=== PATIENT | male | born 1945 | race Caucasian/White ===

== ENCOUNTER → 2017-07-31 | Outpatient (CLI) | payer MEDICARE | END | disposition home or self-care (01) | LOC: C.RDSM 14:30 | PROVIDERS: ATTEND Physical Medicine & Rehabilitation Sports Medicine | DX: M25.561 Pain in right knee (principal) ==

== ENCOUNTER 2019-01-30 06:10 | Inpatient (IN) ==
--- NOTE | 2019-01-14 09:07 | PAT Medication Instructions ---
Medication Instructions Date of Service January 14, 2019 Home Medications acetaminophen [Tylenol Extra Strength] 1,000 mg PO TID NEEDED aspirin [Aspirin Low Dose] 81 mg PO HS lisinopril 40 mg PO QAM blncmpfj-aba-OC-lycopen-lutein [Men 50 Plus Multivitamin] 1 tab PO DAILY rosuvastatin 5 mg PO HS solifenacin [Vesicare] 10 mg PO QAM DO NOT take the morning of surgery lisinopril 40 mg PO QAM xhnfdash-ggq-LJ-lycopen-lutein [Men 50 Plus Multivitamin] 1 tab PO DAILY solifenacin [Vesicare] 10 mg PO QAM Take morning of surgery With a small sip of water, OTHERWISE NOTHING TO EAT OR DRINK AFTER MIDNIGHT: acetaminophen [Tylenol Extra Strength] 1,000 mg PO TID NEEDED (if needed; stop taking 4 hours prior to surgery) Take evening before surgery acetaminophen [Tylenol Extra Strength] 1,000 mg PO TID NEEDED (if needed) aspirin [Aspirin Low Dose] 81 mg PO HS rosuvastatin 5 mg PO HS Other Notes If you have any questions please call us at [phone] or [phone] or [phone] or [phone]
--- NOTE | 2019-01-14 12:05 | Anesthesiology Consultation ---
Date of Service January 14, 2019 Assessment & Plan (1) Encounter for pre-operative examination: -No previous anesthesia records re: intubation Chart Review Chart Review: Acceptable Risk for Surgery and Patient seen in Pre Admission Test ing Consults Requested medical (Dr. Lozano (01/18)) Patient was seen by PCP on 01/18 and Clearance request sheet was filled out. They indicated that "Yes", patient is medically cleared for surgery. Teaching & Discussion Pre-Anesthesia Teaching/Discussion Notes: Instructed NPO after midnight before surgery, except medications with 15 cc of water. Medication instructions provided according to the PAT guidelines. History Surgery Operation Date: 01/30/19 09:00 Proposed Procedures p Left Total Knee Arthroplasty - Singh Brown MD Height/Weight Height: 6 ft 5 in Weight: 120.4 kg Allergies Allergy/AdvReac Type Severity Reaction Status Date / Time No Known Allergies Allergy Verified 01/08/19 11:20 Medications Home Medications Medication Instructions Recorded Confirmed Last Taken acetaminophen [Tylenol Extra 1,000 mg PO TID PRN 01/08/19 01/08/19 Unknown Strength] aspirin [Aspirin Low Dose] 81 mg PO HS 01/08/19 01/08/19 Unknown lisinopril 40 mg PO QAM 01/08/19 01/08/19 Unknown wabjznwr-pzn-YB-lycopen-lutein 1 tab PO DAILY 01/08/19 01/08/19 Unknown [Men 50 Plus Multivitamin] rosuvastatin 5 mg PO HS 01/08/19 01/08/19 Unknown solifenacin [Vesicare] 10 mg PO QAM 01/08/19 01/08/19 Unknown Past Medical History Medical History Environmental allergies H/O prostate cancer Hyperlipidemia Hypertension Osteoarthritis Pacemaker PLACED 08/16/2018. LAST CHECKED 01/08/19. [facility] (DR. AZAM JONES) IN [place]. Exercise / Class Metabolic Activity II 4-5 Yardwork/Stairs/Walk up hill (Less due to knee pain. Walks dog 2 miles per day. Climbs stairs for activity. Denies CP or SOB. ) Past Surgical History Surgical History H/O cataract extraction H/O elbow surgery BILATERAL H/O hand surgery BILATERAL History of adenoidectomy History of cardiac cath 08/2018 NO STENTS. History of carpal tunnel release BILATERAL History of colonoscopy History of esophagogastroduodenoscopy (EGD) History of permanent cardiac pacemaker placement 08/2018 [facility] History of prostatectomy History of radial keratotomy History of repair of rotator cuff X2 RIGHT History of tonsillectomy Past Anesthesia History No Hx of Anesthesia Complications and No Family Hx of Anesthesia Complications History of PONV No Hx of PONV and No Hx of Motion Sickness Social History Smoking Status: Never smoker Do You Dip or Chew Tobacco: No Hx Alcohol Use: No Hx Substance Use: No substance use type: does not use Review of Systems Patient denies chest pain, shortness of breath, dyspnea on exertion, cough, wheezing, palpitations. +Joint Pain (Knees) +Acid Reflux (diet controlled) Physical Exam Vital Signs BP: 138/83 P: 76 R: 16 T: 98.1 SPO2: 96% on RA ENMT Thyromental Distance: > or= 3.5 Finger Breadths (4) Mallampati Class: II Neck normal visual inspection, trachea midline and + facial hair (Cruz - Advised); neck extension not limited Respiratory normal respiratory effort Auscultation: lungs clear to auscultation bilaterally Cardiovascular Rate/Rhythm: regular rate and regular rhythm Heart Sounds: no murmur Vessels: no carotid bruit Chest (Breasts) Chest: + pacemaker (left) Neurologic moves all extremities Psychiatric Orientation: alert and oriented x 3 Testing Laboratory Results 01/14/19 12:45 01/14/19 12:45 PT 10.6 Seconds (9.0-12.0) 01/14/19 12:45 INR 1.0 (0.9-1.1) 01/14/19 12:45 APTT 26.8 Seconds (21.0-31.0) 01/14/19 12:45 Urine Color Yellow 01/14/19 Unknown Urine Appearance Clear (Clear) 01/14/19 Unknown Urine pH 5.5 (4.5-7.5) 01/14/19 Unknown Ur Specific [place] 1.017 (1.000-1.030) 01/14/19 Unknown Urine Protein Negative (Negative) 01/14/19 Unknown Urine Glucose (UA) Negative (Negative) 01/14/19 Unknown Urine Ketones Negative (Negative) 01/14/19 Unknown Urine Nitrite Negative (Negative) 01/14/19 Unknown Ur Leukocyte Esterase Negative (Negative) 01/14/19 Unknown Blood Type O Positive 01/14/19 12:45 Antibody Screen NEGATIVE 01/14/19 12:45 Electrocardiogram Date: 01/14/19 Atrial sensed ventricular paced rhythm @ 67 bpm Chest X-Ray Date: 01/14/19 Findings: + NAD FINDINGS: The bones soft tissues and hemidiaphragms are normal. The cardiomediastinal silhouette is normal. The lungs are clear. The pulmonary vasculature is normal. IMPRESSION: Negative chest. Bipolar cardiac pacemaker in good position. Echocardiogram Date: 08/17/18 EF: 60% This is a limited echocardiogram for left ventricular function. All long of the left ventricle appear to contract. The EF appears normal at 60%. Cardiac Catheterization Date: 08/19/18 Intervention: + none The patient has minimal atherosclerotic disease. Preserved LV function. No mitral regurgitation, Normal LV diastolic parameters. The patient will continue with primary prevention for atherosclerotic disease. Findings: 1. The left main gives rise to the LAD, circumflex coronary artery, and a small ramus intermedius vessel. No plaque is present within the left main, which is about a 4.0 caliber vessel. The LAD is a large and tortous vessel without plaquing present. 2. The circumflex coronary artery is angiographically nondominant, although has a rich supply of obtuse marginalis. Minimal atheromata is seen in the circ, and in its branch vessels. There is a very large atrial recurrent branch coming off of the circumflex coronary artery. 3. The right coronary artery is as angiographically dominant large vessel with lumial irregularities. No significant plaque present. EF 65% with no RWMA Other Testing 01/08/19 -Note states "Mr. Borden's dual chamber Medtronic pacemaker was interrogated today. The device demonstrates appropriate function. No significant arrhythmias were documented. Mr. Borden will have a follow-up device interrogation in three-four months." This note was from Dr. Jones in [place].
--- NOTE | 2019-01-14 13:12 | XRay Report ---
XR chest Pre-admission PA/Lat CLINICAL HISTORY: pat preoperative COMPARISON STUDY: No previous studies for comparison. FINDINGS: The bones soft tissues and hemidiaphragms are normal. The cardiomediastinal silhouette is n ormal. The lungs are clear. The pulmonary vasculature is normal. IMPRESSION: Negative chest. Bipolar cardiac pacemaker in good position. The above report was generated using voice recognition software. It may contain grammatical, syntax or spelling errors. Electronically signed by: Viraj Murguia M.D. 01/14/2019 1:11 PM
[2019-01-14 14:00] LABS: Basophils # (auto) 0.02 K/uL (0-0.2); Basophils % (auto) 0.4 %; Eosinophils # (auto) 0.12 K/uL (0-0.5); Eosinophils % (auto) 2.4 %; Hematocrit (blood only) 43.8 % (42-52); Hemoglobin 14.9 g/dL (14.0-18.0); Immature Granulocytes # (auto) 0.01 K/uL (0.00-0.02); Immature Granulocytes % (auto) 0.2 %; Lymphocytes # (auto) 1.43 K/uL (1.2-3.4); Lymphocytes % (auto) 28.8 %; Mean Corpuscular Volume 86.1 fL (80-100); Monocytes # (auto) 0.43 K/uL (0.11-0.59); Monocytes % (auto) 8.7 %; Neutrophils # (auto) 2.96 K/uL (1.4-6.5); Neutrophils % (auto) 59.5 %; Platelet Count 261 K/uL (130-400); RDW Standard Deviation 43.7 fL (36.4-46.3); Red Blood Count 5.09 M/uL (4.7-6.1); White Blood Count 4.97 K/uL (4.8-10.8)
[2019-01-14 14:13] LABS: Partial Thromboplastin Time 26.8 Seconds (21.0-31.0); Prothrombin Time 10.6 Seconds (9.0-12.0)
[2019-01-14 14:23] LABS: Appearance Urine Clear (Clear); Bilirubin Urine Negative (Negative); Blood Urine Negative (Negative); Color Urine Yellow; Glucose Urine UA Negative (Negative); Ketones Urine Negative (Negative); Leukocyte Esterase Urine Negative (Negative); Nitrite Urine Negative (Negative); Protein Urine Negative (Negative); Specific Gravity Urine 1.017 (1.000-1.030); Urobilinogen Urine Negative (Negative); pH Urine 5.5 (4.5-7.5)
[2019-01-14 14:28] LABS: BUN Creatinine Ratio 17.2 (10-20); Calcium 9.9 mg/dl (8.5-10.1); Creatinine Clr Calc Pharmacy 131.6 ml/min; Est GFR (African American) 107.6; Est GFR (Non-African American) 92.8; Potassium 4.5 mmol/L (3.5-5.1)
--- NOTE | 2019-01-18 19:21 | History and Physical Report ---
DATE OF ADMISSION: 01/30/2019 PATIENT OF: Singh Brown MD. CHIEF COMPLAINT: Left knee pain. HISTORY OF PRESENT ILLNESS: This 73-year-old white male presents to the office with complaints of longstanding history of bilateral knee pain, left greater than right. He has tried activity modification, oral anti-inflammatories, oral pain medication, viscosupplementation injections, and cortisone injections without lasting relief. The knee pain has been ongoing for years. He feels ready to proceed with total knee arthroplasty. Recent x-rays have been obtained. Pain is affecting his ADLs. It is worse with weightbearing. He elects to proceed with left total knee arthroplasty in hopes of alleviating his pain. FAMILY HISTORY: Significant for cancer and stroke. ALLERGIES: LIPITOR. CURRENT MEDICATIONS: Acetaminophen p.r.n., aspirin 81 mg daily, lisinopril 40 mg daily, Restasis eye drops b.i.d., rosuvastatin 5 mg daily, VESIcare 10 mg tablet daily. PAST MEDICAL HISTORY: Significant for bradycardia and palpitations, ADHD, GERD, prostate cancer, and osteoarthritis. PAST SURGICAL HISTORY: Bilateral carpal tunnel releases, bilateral ulnar nerve transpositions, right rotator cuff repair, right knee quadriceps tendon repair, prostatectomy, cataract surgery bilaterally, heart catheterization and pacemaker placement on 08/17/2018. SOCIAL HISTORY: The patient is single. No tobacco use, rare ETOH use. Still employed. REVIEW OF SYSTEMS: A total of 10 systems are reviewed and are significant only for the above-stated conditions. PHYSICAL EXAMINATION: GENERAL: Well-developed, well-nourished elderly white male in no acute distress. Sitting in a chair. Alert and oriented. SKIN: Warm and dry with good turgor. No rashes or lesions. No ecchymosis or erythema. HEENT: Normocephalic, atraumatic. Eyes PERRLA, EOMI. Nares patent bilaterally without turbinate enlargement. Oropharynx without erythema or exudate. No lesions noted. Uvula midline. Oral mucosa moist. Fair dentition. Dental caps are noted. HEART: RRR. No MGR. LUNGS: Clear to auscultation bilaterally. No crackles, rhonchi or wheezing. Good air movement. ABDOMEN: Bowel sounds present x4, soft, nontender. No organomegaly. No masses. MUSCULOSKELETAL: Left knee evaluation reveals full terminal extension. Flexion to greater than 100 degrees. Strength is 5/5 with good quad tone. He has discomfort with palpation over the medial and lateral joint lines. Crepitus is palpable with motion. No defect in the patellar tendon or quadriceps tendon. Stable collateral ligaments. NEUROLOGIC: Gross sensation is intact across the left leg by soft touch. Peripheral pulses are 2+. Cranial nerves II-XII are intact. DATA: Radiographic imaging previously obtained shows end-stage DJD, specifically in the lateral compartment and the patellofemoral compartment. Periarticular osteophytes, subchondral sclerosis, and joint space narrowing are all present. IMPRESSION: Left knee end-stage degenerative joint disease. PLAN: Informed written consent to proceed with total knee arthroplasty has been obtained. Postoperative prescriptions for Percocet and Coumadin will be provided at discharge from the hospital. Anticipate discharge to home with outpatient services. He was reminded that he should not drive while taking Percocet. He already has a walker and cane. Preoperative lab work, EKG, and chest x-ray have been ordered. 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
[~2019-01-30 06:10] MED LIST: CEFAZOLIN 3000MG 72.5 ML IV SCH; LR 15ML/HR IV SCH; LR 500ML BOLUS, THEN 15ML/HR IV SCH; LR 60ML/HR IV SCH; ROPIVACAINE 0.5% HCL/PF 150 MG, BUPIVACAINE 0.5% MPF 30 ML, EPINEPHrine 0.15 MG, Ketoro... INFIL SCH; TRANEXAMIC ACID 1,000 MG **IV Pre-op IV SCH
--- NOTE | 2019-01-30 06:24 | History & Physical Bridge Note ---
Date of Service January 30, 2019 History & Physical Bridge Note I have examined the patient, reviewed the History & Physical and in the interval since the performance of the History & Physical I have noted the following changes of clinical significance:consent obtained when he was in preop bay. no changes noted
[2019-01-30] MEDS ORDERED: BUPIVACAINE 0.5 % 5 MG/1 ML PF 10ML VIAL ONE (06:30)
[2019-01-30] MEDS ORDERED: ROPIVACAINE 0.5% 5 MG/ML 30 ML VIAL ONE (06:31)
[2019-01-30] MEDS ORDERED: LIDOCAINE HCL 2% 2 ML VIAL/AMP(20MG/ML) INFIL ONE (07:20)
[2019-01-30] MEDS ORDERED: PROPOFOL IV EMULSION 10 MG/ML 20 ML VIAL IV ONE (07:20)
[2019-01-30] MEDS ORDERED: MIDAZOLAM HCL 1 MG/ML 2ML VIAL ONE ×2 (07:21→08:31)
[2019-01-30] MEDS ORDERED: fentaNYL citrate 100 MCG/2 ML VIAL ONE (07:21)
[2019-01-30] MEDS ORDERED: ePHEDrine sulfate 50 MG/ML AMP IV PRN (08:17)
[2019-01-30] MEDS ORDERED: ATROPINE SULFATE 0.1 MG/ML 10ML SYR IV PRN (08:17)
[2019-01-30] MEDS ORDERED: ORTHO JOINT ANESTHETIC ONE (08:36)
[2019-01-30] MEDS ORDERED: ONDANSETRON INJ 2 MG/ML 2 ML VIAL ONE (09:25)
--- NOTE | 2019-01-30 10:31 | Operative Report ---
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 He had tried injection therapy, oral pain medication, and activity modification without lasting improvement. He elected to proceed with surgical intervention after being educated about potential risks and outcomes. Preoperative imaging was obtained. Description of Procedure Patient was administered a spinal anesthetic and then taken to the operating room where he was given sedation. Patient was prepped and draped in the usual sterile fashion. Please see Dr. Brown's operative report for specifics of the procedure. I was present for the entire case from initial patient positioning through final wound closure. Assistance was provided in tissue retraction, hemostasis, trial implant placement, final implant placement, and final wound closure. Patient was taken to the recovery room in satisfactory condition. I attest to the content of the Intraoperative Record and any orders documented therein. Any exceptions are noted below.
--- NOTE | 2019-01-30 10:53 | XRay Report ---
XR knee LT 2V routine CLINICAL HISTORY: Surgical Post Op DEGENERATIVE ARTHRITIS COMPARISON: 01/14/2019 DISCUSSION: There are postsurgical changes of a total left knee arthroplasty and patellar resurfacing . The femoral and tibial components appear well seated. There are overlying skin bethany. There is ai r within the soft tissues consistent with recent surgery. Calcifications are again visualized within the region of the distal quadriceps tendon IMPRESSION: Postsurgical changes of a total left knee arthroplasty. Electronically signed by: Mika Victoria M.D. 01/30/2019 10:51 AM
--- NOTE | 2019-01-30 11:01 | Operative Report ---
DATE OF OPERATION: 01/30/2019 SURGEON: Singh Brown MD WELLNESS GUIDE: Adonay Peres PA-C. No resident or fellow available. PREOPERATIVE DIAGNOSES: Osteoarthritis, left knee with significant patellofemoral and lateral compartment disease. POSTOPERATIVE DIAGNOSIS: Osteoarthritis, left knee with significant patellofemoral and lateral compartment disease, also had grade 4 disease in the medial compartment. OPERATION PERFORMED: Cemented left total knee replacement. PERIOPERATIVE SITUATION: Medically cleared male with intractable knee pain, has been followed for years with bilateral knee pain and a reconstruction of his extensor mechanism on the right for a failed quad tendon repair done elsewhere. At this point in time, he is going to need bilateral knee replacements and is requesting the left first. He understands the risks and consequences. DESCRIPTION OF PROCEDURE: The patient properly identified, site verified, consent verified. Antibiotics confirmed as being given. The left lower extremity was prepped and draped in usual routine fashion. Tourniquet inflated to 300 mmHg after exsanguination of limb with a rubber Esmarch bandage for a total of 50 minutes. Midline exposure was utilized. Parapatellar arthrotomy performed. Synovectomy completed. Marginal osteophytes resected. Distal femur then entered. Cruciates resected. Distal femur resected 12 mm. Proximal tibia resected 4 mm. The extension gap was slightly tight laterally. Some soft tissue releases allowed that to be excellent. The femur was then sized to a 4 and appropriate cutting block applied and the anterior, posterior condylar and chamfer cuts were then made and the flexion gap checked. It was again slightly tight laterally. Some slight release performed and then it was excellent. Box cut was then made and the size 4 fit well. The tibia was then subluxated and then the tibial seating instruments for the tray seated and then broaching and reaming carried out and the size 4 fit well. The patella tracked slightly laterally and internal release was performed and the tracking improved substantially. The mid range flexion and full extension stability was excellent. The patella was then everted and resected leaving about 16 mm, the seating holes made for the size 41 patellar button. This tracked well. All trial implants were then removed. The area injected with Orthomix both posteriorly and around the major anterior incision. The wound was irrigated with Betadine Pulsavac and then the implants cemented in position starting with the tibia, femur and patella in that order. After 12 minutes, the tourniquet deflated. Minor bleeding controlled with electrocautery. EBL was 50 mL. After 14 minutes, the knee was flexed, subluxated, the trial liner removed, irrigated with Betadine Pulsavac, the permanent liner seated. No cement removal was required and the knee was reduced and closed with, #2 Vicryl, 0 Vicryl, 2-0 Vicryl and stainless steel clips. Appropriate dressing applied. The patient transferred to recovery room in satisfactory condition having tolerated the procedure well. EBL 50 mL. DVT prophylaxis with Coumadin. Pathology pending on bone. SUMMARY OF IMPLANTS: Size 4 posterior cruciate substituting femur, size 4 mobile bearing tray, size 4, 10 mm spacer, posterior cruciate substituting oval dome 3 peg patella size 41, and 2 bags of [place] G cement. I attest to the content of the Intraoperative Record and any orders documented therein. Any exception s are noted below.
--- NOTE | 2019-01-30 11:06 | Progress Note ---
DATE: 01/30/2019 SUBJECTIVE: Postop check. The patient seen in the recovery room. He is alert and oriented. He denies any chest pain, shortness of breath, fever, chills, nausea, vomiting or headache. OBJECTIVE: His neurovascular check is limited by his spinal. Postop x-rays, AP and lateral knee looked excellent. ASSESSMENT: Doing well status post total knee replacement. Continue with care pathway, have home services see. We will follow up outpatient in 2 weeks. ADDENDUM: Went to see his sister in the waiting area, but she was not there, left message that things went well and I informed the patient of such as well. He states that she wonders. Overall doing well.
--- NOTE | 2019-01-30 11:35 | Anesthesiology Progress Note ---
Date of Service January 30, 2019 Anesthesia Post Procedure Vital Signs Vital Signs: Temp Pulse Pulse Resp BP Pulse Ox 01/30/19 11:25 36.5 C 62 16 114/67 98 01/30/19 11:15 69 16 107/69 99 01/30/19 11:05 64 16 109/66 98 01/30/19 10:55 67 16 110/68 98 01/30/19 10:45 64 16 106/63 100 01/30/19 10:35 68 16 118/86 100 01/30/19 10:28 36.0 C L 73 14 96/64 L 100 01/30/19 06:50 37.1 C 69 18 137/64 98 Transfer of Care Handoff Completed per policy Notes Mental Status: alert / awake / arousable and participated in evaluation Patient Amnestic to Procedure: Yes Nausea / Vomiting: adequately controlled Pain: adequately controlled Airway Patency, RR, SpO2: stable & adequate BP & HR: stable & adequate Hydration State: stable & adequate Neuraxial Anesthesia: was administered and sensory block is resolving Anesthetic Complications: no major complications apparent
[2019-01-30] MEDS ORDERED: BISACODYL 10 MG SUPP PR PRN (12:20)
[2019-01-30] MEDS ORDERED: NALOXONE HCL 0.4 MG/1 ML VIAL/CARP IV PRN (12:20)
[2019-01-30] MEDS ORDERED: ONDANSETRON INJ 2 MG/ML 2 ML VIAL IV PRN (12:20)
[2019-01-30] MEDS ORDERED: DiphenhydrAMINE HCL 50 MG/ML VIAL IV PRN (12:20)
[2019-01-30] MEDS ORDERED: TAMSULOSIN HCL 0.4 MG CAP PO PRN (12:20)
[2019-01-30] MEDS ORDERED: ALUMINUM/MAGNESIUM SUSP 30 ML UDC PO PRN (12:20)
[2019-01-30] MEDS ORDERED: OXYCODONE HCL IR 5 MG TAB (IMMEDIATE RELEASE) PO PRN (12:20)
[2019-01-30] MEDS ORDERED: METOCLOPRAMIDE HCL INJ 5 MG/ML 2 ML VIAL IV PRN (12:20)
[2019-01-30] MEDS ORDERED: MAGNESIUM HYDROXIDE SUSP 30 ML UDC PO PRN (12:20)
[2019-01-30] MEDS ORDERED: HYDROmorphone INJ 0.5 MG/0.5 ML SYR IV PRN (12:20)
[2019-01-30] MEDS ORDERED: SODIUM CHLORIDE 0.9% 1000ML 1,000 ML IV SCH (13:00)
[2019-01-30] MEDS: ACETAMINOPHEN 500 MG TAB PO SCH ×2 (14:00→21:54)
[2019-01-30] MEDS: ORTHO WARFARIN NOMOGRAM SCH (14:31)
[2019-01-30] MEDS ORDERED: WARFARIN SOD 5 MG TAB PO SCH (16:00)
[2019-01-30] MEDS ORDERED: TRANEXAMIC ACID 1,000 MG in 0.9 % SODIUM CHLORIDE 100 ML IV SCH (16:32)
[2019-01-30] MEDS: CEFAZOLIN 2000MG 2,000 MG/15 ML SYR IV SCH (16:45)
[2019-01-30] MEDS: KETOROLAC TROMETHAMINE 15 MG/ML VIAL IV SCH ×2 (16:47→21:54)
[2019-01-30] MEDS: FERROUS GLUCONATE 324 MG TAB PO SCH (18:37)
--- NOTE | 2019-01-30 18:49 | Discharge Summary ---
CHIEF COMPLAINT: Left knee pain. HISTORY OF PRESENT ILLNESS: The patient underwent an elective left total knee replacement. He is doing well, has no issues. His neurovascular check is completely normal. Vital signs are stable; he is afebrile. Denies chest pain, shortness of breath, fever, chills, nausea, vomiting or headache. REVIEW OF SYSTEMS: Noncontributory. Hospital course to date has been uneventful. His postop x-rays look excellent. ASSESSMENT: Doing well. PLAN: For discharge tomorrow to home. He denies any need for services. He will follow up in 2 weeks for staple removal. We will discharge on Coumadin. Dose will be depending on INR findings tomorrow morning prior to discharge. see other summary which is more detailed. MTDD
--- NOTE | 2019-01-30 19:04 | Discharge Summary ---
CHIEF COMPLAINT: Left knee pain. HISTORY OF PRESENT ILLNESS: Underwent elective left total knee replacement. He is doing well, has no major issues. FAMILY HISTORY: Remarkable for cancer and stroke. ALLERGIES: LIPITOR. CURRENT MEDICATIONS: Include acetaminophen, aspirin, linosopril, Restasis, rosuvastatin, VESIcare. Will also be discharged on p.r.n. pain medication, see script and Coumadin to keep INR at 1.8-2.2. PAST MEDICAL HISTORY: Remarkable for bradycardia, palpitations, ADHD, GERD, prostate cancer, osteoarthritis. PAST SURGICAL HISTORY: Remarkable for carpal tunnel releases, ulnar nerve transplants, rotator cuff surgery, quadriceps tendon reconstruction on the right, prostatectomy, cataract surgery, heart catheterization, pacemaker. SOCIAL HISTORY: Reveals that he is single. No tobacco or alcohol use. He is still employed. REVIEW OF SYSTEMS: Noncontributory. ASSESSMENT: Doing well status post left total knee replacement. PLAN: Continue with care pathway. Denied the need for any home services. We will discharge on Coumadin, keep INR 1.8-2.2. Follow up in 2 weeks. ROBERT
[2019-01-30] MEDS: DOCUSATE SODIUM 100 MG CAP PO SCH (19:35)
[2019-01-30] MEDS ORDERED: SENNA 8.6 MG TAB PO SCH (21:00)
[2019-01-30] MEDS ORDERED: ROSUVASTATIN CALCIUM 5 MG TAB PO SCH (21:00)
[2019-01-30] MEDS ORDERED: ASPIRIN 81 MG ECTAB PO SCH (21:00)
[2019-01-31] MEDS: CEFAZOLIN 2000MG 2,000 MG/15 ML SYR IV SCH (00:19)
[2019-01-31] MEDS: KETOROLAC TROMETHAMINE 15 MG/ML VIAL IV SCH ×2 (04:08→10:04)
[2019-01-31] MEDS: ACETAMINOPHEN 500 MG TAB PO SCH (05:57)
[2019-01-31 06:51] LABS: Hematocrit (blood only) 36.8 % (42-52); Hemoglobin 12.1 g/dL (14.0-18.0); Mean Corpuscular Hgb Conc 32.9 g/dL (32-36); Mean Corpuscular Volume 87.4 fL (80-100); Platelet Count 215 K/uL (130-400); RDW Coefficient of Variation 14.1 % (11.5-14.5); RDW Standard Deviation 45.2 fL (36.4-46.3); Red Blood Count 4.21 M/uL (4.7-6.1); White Blood Count 9.61 K/uL (4.8-10.8)
[2019-01-31 06:59] LABS: INR 1.1 (0.9-1.1); Prothrombin Time 10.9 Seconds (9.0-12.0)
[2019-01-31 07:31] LABS: Calcium 8.8 mg/dl (8.5-10.1); Creatinine Clr Calc Pharmacy 110.5 ml/min; Est GFR (African American) 100.4; Est GFR (Non-African American) 86.6; Potassium 4.3 mmol/L (3.5-5.1)
[2019-01-31] MEDS: ORTHO WARFARIN NOMOGRAM SCH (07:39)
[2019-01-31] MEDS: DOCUSATE SODIUM 100 MG CAP PO SCH (07:41)
[2019-01-31] MEDS: FERROUS GLUCONATE 324 MG TAB PO SCH (07:41)
--- NOTE | 2019-01-31 07:46 | Progress Note ---
DATE: 01/31/2019 SUBJECTIVE: Postop day #1 status post left total knee replacement. The patient is doing well. Denies chest pain, shortness of breath, fever, chills, nausea, vomiting or headache. OBJECTIVE: Vital signs are stable. He is afebrile. Neurovascular check femoral sciatic nerve is normal. Wound dressing is clean, dry and intact. Laboratory work is pending. ASSESSMENT: Doing well. Plan is to discharge to home today after PT, OT. Please give Coumadin dose based on nomogram today prior to discharge. Home dose will be determined by results today. If INR is 1.5 or less, discharge on 4 mg. If 1.6-2.0, 2 mg. If greater than 2, hold.
--- NOTE | 2019-01-31 07:53 | Anesthesiology Progress Note ---
Date of Service January 31, 2019 Anesthesia Post Procedure Vital Signs Vital Signs: Temp Pulse Pulse Resp BP Pulse Ox 01/31/19 07:26 37.3 C 80 18 149/75 H 96 01/31/19 03:43 36.8 C 73 18 123/68 95 01/30/19 23:28 36.7 C 68 18 119/66 95 01/30/19 19:47 36.6 C 73 18 132/68 97 01/30/19 15:36 36.5 C 68 18 128/76 95 01/30/19 13:48 36.9 C 72 18 106/66 97 01/30/19 12:32 36.8 C 68 18 116/77 97 01/30/19 11:50 36.6 C 64 18 112/69 99 01/30/19 11:35 62 16 110/67 98 01/30/19 11:25 36.5 C 62 16 114/67 98 01/30/19 11:15 69 16 107/69 99 01/30/19 11:05 64 16 109/66 98 01/30/19 10:55 67 16 110/68 98 01/30/19 10:45 64 16 106/63 100 01/30/19 10:35 68 16 118/86 100 01/30/19 10:28 36.0 C L 73 14 96/64 L 100 Pain Intensity Left Knee: Pain Intensity: 1 Transfer of Care Handoff Completed per policy Notes Mental Status: alert / awake / arousable Patient Amnestic to Procedure: Yes Nausea / Vomiting: adequately controlled Pain: adequately controlled Airway Patency, RR, SpO2: stable & adequate BP & HR: stable & adequate Hydration State: stable & adequate Neuraxial Anesthesia: sensory block resolved Anesthetic Complications: no major complications apparent
[2019-01-31] MEDS ORDERED: dexAMETHasone 10 MG in SYRINGE 0 ML IV SCH (08:00)
--- NOTE | 2019-01-31 08:21 | Orthopedic Progress Note ---
Date of Service January 31, 2019 Assessment & Plan (1) Status post total left knee replacement: Postoperative dressing was changed this morning. Wound looks excellent. No active drainage. Expected postoperative edema and ecchymosis. It may be redressed on Monday if needed Continue with his DOM hose until seen in the office postop Follow-up in the office in 2 weeks for staple removal Continue with ice and elevation frequently to reduce pain and swelling Coumadin 4 mg daily. Recheck INR on Monday PT/OT this morning. Continue with a home exercise program Discharge to home this morning after physical therapy, and start outpatient lab services on Monday Subjective Patient is seen in his room this morning. He states he did well overnight. Denies any chest pain, shortness of breath, nausea, vomiting, or abdominal pain. States he has used very little pain medication. He feels ready for discharge today. He is happy with his outcome thus far. Physical Exam Physical Exam: Patient is laying in his bed. No signs of acute distress. States he has very little pain in his knee. He is able to perform straight leg raise. He has nearly full extension. Lacks just a few degrees. Intact motor function to the ankle. Neurologic: Gross sensation is intact across the left lower extremity by soft touch. Peripheral pulses are 2+. Abdomen: Abdomen is soft and nontender to palpation. Results & Data Vital Signs (Past 12 Hours) Vital Signs Temp Pulse Resp BP Pulse Ox 01/31/19 07:26 37.3 C 80 18 149/75 H 96 01/31/19 03:43 36.8 C 73 18 123/68 95 01/30/19 23:28 36.7 C 68 18 119/66 95
[2019-01-31] MEDS ORDERED: LISINOPRIL 40 MG TAB PO SCH (09:00)
[2019-01-31] MEDS ORDERED: MULTIVITAMIN TAB PO SCH (09:00)
[2019-01-31] MEDS ORDERED: WARFARIN SOD 5 MG TAB PO ONE (16:00)
== END 2019-01-31 11:33 | disposition home or self-care (01) | DRG 470 ==
LOC: PAT 06:10 → 3E 10:39

== ENCOUNTER 2019-04-10 04:49 | Inpatient (IN) ==
--- NOTE | 2019-03-27 16:22 | History and Physical Report ---
DATE OF ADMISSION: 04/10/2019 PATIENT OF: Singh Brown MD. CHIEF COMPLAINT: Right knee pain. HISTORY OF PRESENT ILLNESS: This 74-year-old white male presents for his preoperative history and physical. He is scheduled to undergo a right knee total knee arthroplasty with removal of patellar screws on 04/10/2019. The patient has a longstanding history of right knee pain. He previously had left knee pain as well, but underwent left total knee arthroplasty on 01/30/2019 and has done well with it. He elects to proceed with the same on the right. He does have a history of previous quadriceps tendon repair many years ago on the right. Pain is affecting his ADLs. It is worse with weightbearing. Recent imaging has been obtained. He has tried activity modification, oral anti-inflammatories, oral pain medication, viscosupplementation injections and cortisone injections without relief. PAST MEDICAL HISTORY: Significant for bradycardia, palpitations, ADHD, GERD, prostate cancer, and osteoarthritis. PAST SURGICAL HISTORY: Bilateral carpal tunnel releases, bilateral ulnar nerve transpositions, right shoulder rotator cuff repair, right knee quadriceps tendon repair, prostatectomy, cataract surgery bilaterally, heart catheterization and pacemaker placement on 08/17/2018, left total knee arthroplasty 01/30/2019. FAMILY HISTORY: Significant for cancer and stroke. ALLERGIES: KNOWN ALLERGY TO LIPITOR. CURRENT MEDICATIONS: Acetaminophen p.r.n., aspirin 81 mg daily, lisinopril 40 mg p.o. daily, Restasis 0.05% Emulsion 1 drop b.i.d. in each eye, rosuvastatin 5 mg p.o. daily, VESIcare 10 mg p.o. daily. SOCIAL HISTORY: The patient is single. 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 No tobacco use, rare ETOH use. REVIEW OF SYSTEMS: A total of 10 systems are reviewed and are significant only for above-stated conditions. PHYSICAL EXAMINATION: GENERAL: Well-developed, well-nourished elderly white male in no acute distress. Sitting in a chair. Alert and oriented. SKIN: Warm and dry with good turgor. No rashes or lesions. No ecchymosis or erythema. Well-healed surgical scar on the right knee. He also has a healing surgical scar on the left knee. Mild intraarticular effusion in the left knee. HEENT: Normocephalic, atraumatic. Eyes PERRLA, EOMI. Nares patent bilaterally without turbinate enlargement. Oropharynx without erythema or exudate. No lesions noted. Uvula midline. Oral mucosa moist. Fair dentition. Dental caps are noted. HEART: RRR. No MGR. LUNGS: Clear to auscultation bilaterally. No crackles, rhonchi or wheezing. Good air movement. ABDOMEN: Bowel sounds present x4, soft, nontender. No organomegaly. No masses. MUSCULOSKELETAL: Right knee evaluation reveals full terminal extension. Flexion to greater than 100 degrees. Strength is 5/5 with good quad tone. Old surgical scar is present. There is discomfort with palpation over the medial and lateral joint lines. He has crepitus palpable with motion. No palpable defect in the patellar tendon. Stable collateral ligaments. The patient is able to perform a straight leg raise on the right side, but has an extensor lag of approximately 5 degrees. NEUROLOGIC: Gross sensation is intact across both lower extremities by soft touch. Peripheral pulses are 2+. Cranial nerves II-XII are intact. DATA: Radiographic imaging previously obtained shows retained screws in the patella. Joint space narrowing throughout all compartments. Advancing DJD, periarticular osteophytes, and subchondral sclerosis are all present. IMPRESSION: Right knee end-stage degenerative joint disease with retained patellar hardware. PLAN: Postoperative prescriptions for Percocet and Coumadin have already been provided as he does live a significant distance from the hospital. He already has medical clearance from 2 months ago. No new EKG or chest x-ray were ordered, as they should be up to date. New preoperative lab work was ordered. He already has a walker and cane. Anticipate discharge to home with home health services.
--- NOTE | 2019-04-01 14:20 | Anesthesiology Consultation ---
Date of Service April 01, 2019 Assessment & Plan (1) Encounter for pre-operative examination: Chart Review Chart Review: Acceptable Risk for Surgery and Patient NOT seen in Pre Admission Testing Consults Requested none Patient previously ok'd for surgery by PCP and cardiology prior to his other knee surgery on 01/30/2019. History Surgery Operation Date: 04/10/19 07:00 Proposed Procedures p Right Total Knee Arthroplasty - Singh Brown MD Height/Weight Height: 6 ft 5 in Weight: 109.769 kg Allergies Allergy/AdvReac Type Severity Reaction Status Date / Time No Known Allergies Allergy Verified 02/25/19 16:01 Medications Home Medications Medication Instructions Recorded Confirmed Last Taken Men 50 Plus Multivitamin 1 tab PO DAILY 01/08/19 02/25/19 01/26/19 08:00 acetaminophen [Tylenol Extra 1,000 mg PO TID PRN 01/08/19 02/25/19 01/29/19 20:00 Strength] aspirin [Aspirin Low Dose] 81 mg PO HS 01/08/19 02/25/19 01/23/19 20:00 lisinopril 40 mg PO QAM 01/08/19 02/25/19 01/29/19 08:00 rosuvastatin 5 mg PO HS 01/08/19 02/25/19 01/29/19 20:00 solifenacin [Vesicare] 10 mg PO QAM 01/08/19 02/25/19 01/29/19 20:00 Past Medical History Medical History Attention deficit disorder (ADD) NO MEDS NEEDED CURRENTLY Environmental allergies H/O prostate cancer Hyperlipidemia Hypertension Osteoarthritis Pacemaker PLACED 08/16/2018. LAST CHECKED 01/2019. [facility] (DR. AZAM JONES) IN [place], [place]. Past Surgical History Surgical History H/O cataract extraction H/O elbow surgery BILATERAL H/O hand surgery BILATERAL History of adenoidectomy History of cardiac cath 08/2018 NO [facility]. History of carpal tunnel release BILATERAL History of colonoscopy History of esophagogastroduodenoscopy (EGD) History of permanent cardiac pacemaker placement 08/2018 [facility]. LAST CHECKED JANUARY 2019. History of prostatectomy History of radial keratotomy History of repair of rotator cuff X2 RIGHT History of tonsillectomy History of total knee replacement LEFT. 01/30/2019. SAB with PNB. No issues. Social History Smoking Status: Never smoker Do You Dip or Chew Tobacco: No Hx Alcohol Use: No Hx Substance Use: No substance use type: does not use Testing Electrocardiogram Date: 01/25/19 HR 67. Atrial-sensed ventricular-paced rhythm Abnormal ECG No previous ECGs available Confirmed by Juvenal Dewitt ([id number]) on 01/14/2019 4:22:02 PM Chest X-Ray Date: 01/14/19 XR chest Pre-admission PA/Lat CLINICAL HISTORY: pat preoperative COMPARISON STUDY: No previous studies for comparison. FINDINGS: The bones soft tissues and hemidiaphragms are normal. The cardiomediastinal silhouette is normal. The lungs are clear. The pulmonary vasculature is normal. IMPRESSION: Negative chest. Bipolar cardiac pacemaker in good position.
[2019-04-10] MEDS ORDERED: LR 500ML BOLUS, THEN 15ML/HR IV SCH (06:00)
[2019-04-10] MEDS ORDERED: TRANEXAMIC ACID 1,000 MG **IV Pre-op IV SCH (06:00)
[2019-04-10] MEDS ORDERED: ROPIVACAINE 0.5% HCL/PF 150 MG, BUPIVACAINE 0.5% MPF 30 ML, EPINEPHrine 0.15 MG, Ketoro... INFIL SCH (06:00)
[2019-04-10] MEDS ORDERED: CEFAZOLIN 2000MG 2,000 MG/15 ML SYR IV SCH (06:00)
[2019-04-10] MEDS ORDERED: LR 60ML/HR IV SCH (06:00)
[2019-04-10] MEDS ORDERED: EPINEPHrine INJ 1 MG/ML AMP ONE (06:22)
[2019-04-10] MEDS ORDERED: ROPIVACAINE 0.5% 5 MG/ML 30 ML VIAL ONE (06:22)
[2019-04-10] MEDS ORDERED: BUPIVACAINE 0.5 % 5 MG/1 ML PF 10ML VIAL ONE (06:22)
--- NOTE | 2019-04-10 06:29 | History & Physical Bridge Note ---
Date of Service April 10, 2019 History & Physical Bridge Note I have examined the patient, reviewed the History & Physical and in the interval since the performance of the History & Physical I have noted the following changes of clinical significance: consent verified.no changes noted
[2019-04-10] MEDS ORDERED: LIDOCAINE HCL 2% 2 ML VIAL/AMP(20MG/ML) INFIL ONE (06:33)
[2019-04-10] MEDS ORDERED: ORTHO JOINT ANESTHETIC ONE (06:33)
[2019-04-10] MEDS ORDERED: MIDAZOLAM HCL 1 MG/ML 2ML VIAL ONE ×3 (06:33→07:12)
[2019-04-10] MEDS ORDERED: PROPOFOL IV EMULSION 10 MG/ML 20 ML VIAL IV ONE (06:33)
[2019-04-10] MEDS ORDERED: ATROPINE SULFATE 0.1 MG/ML 10ML SYR IV PRN (07:06)
[2019-04-10] MEDS ORDERED: ePHEDrine sulfate 50 MG/ML AMP IV PRN (07:06)
[2019-04-10] MEDS ORDERED: HYDROmorphone INJ 1 MG/ML SYRINGE IV PRN (07:06)
[2019-04-10] MEDS ORDERED: fentaNYL citrate 100 MCG/2 ML VIAL IV PRN (07:06)
[2019-04-10] MEDS ORDERED: ONDANSETRON INJ 2 MG/ML 2 ML VIAL IV PRN ×2 (07:06→11:35)
--- NOTE | 2019-04-10 08:53 | Post Operative Brief Note ---
Immediate Post Op Note v1 Date of Surgery April 10, 2019 Pre & Post Diagnosis Operation Date: 04/10/19 07:00 Pre-Op Diagnosis: Right Knee End-Stage Degenerative Joint Disease with Retained Patellar Screws x2 Post-Op Diagnosis: Right Knee End-Stage Degenerative Joint Disease with Retained Patellar Screws x2 Procedure Operation Date: 04/10/19 07:00 Actual Procedures p Right Total Knee Arthroplasty with Removal of Right Patellar Screws x2(Right) - Singh Brown MD Surgeon Singh Brown MD Liquid Chlorine Operator ana/keagan Estimated Blood Loss 100 Findings Consistent with Post-Op Diagnosis
--- NOTE | 2019-04-10 09:03 | Operative Report ---
Post Operative Report Pre & Post Diagnosis Operation Date: 04/10/19 07:00 Pre-Op Diagnosis: Right Knee End-Stage Degenerative Joint Disease with Retained Patellar Screws x2 Post-Op Diagnosis: Right Knee End-Stage Degenerative Joint Disease with Retained Patellar Screws x2 Procedure Operation Date: 04/10/19 07:00 Actual Procedures p Right Total Knee Arthroplasty with Removal of Right Patellar Screws x2(Right) - Singh Brown MD Surgeon TL Brown MD Wafer Slicer ana/keagan Estimated Blood Loss 100 Findings Consistent with Post-Op Diagnosis Specimens see operative report Drains none Complications none Disposition Accompanied Patient To Recovery: Yes Disposition: Recovery Room Indications This 74-year-old white male presented to the office with complaints of intractable right knee pain. He had tried conservative care measures without improvement. He has a history of previous left total knee arthroplasty and has done well with it. He elected to proceed with the same on the right. Preoperative imaging was obtained. Description of Procedure Patient was administered a spinal anesthetic and then taken to the operating room where he was given sedation. He was prepped and draped in the usual sterile fashion. Please see Dr. Brown's operative report for specifics of the procedure. I was present for the entire case from initial patient positioning through final wound closure. Assistance was provided in tissue retraction, hemostasis, trial implant placement, final implant placement, and final wound closure. Patient was taken to the recovery room in satisfactory condition. I attest to the content of the Intraoperative Record and any orders documented therein. Any exceptions are noted below.
--- NOTE | 2019-04-10 09:07 | Operative Report ---
Post Operative Report Pre & Post Diagnosis Operation Date: 04/10/19 07:00 Pre-Op Diagnosis: Right Knee End-Stage Degenerative Joint Disease with Retained Patellar Screws x2 Post-Op Diagnosis: Right Knee End-Stage Degenerative Joint Disease with Retained Patellar Screws x2 Procedure Operation Date: 04/10/19 07:00 Actual Procedures p Right Total Knee Arthroplasty with Removal of Right Patellar Screws x2(Right) - Singh Brown MD Surgeon Singh Brown MD Corsetier ana/keagan Estimated Blood Loss 100 Findings Consistent with Post-Op Diagnosis Specimens please see operative notes Complications none Disposition Accompanied Patient To Recovery: Yes Disposition: Recovery Room Description of Procedure Supine, standard prep and drape, time out, tourniquet Right Total Knee Arthroplasty with Removal of Right Patellar Screws x2 Please see Dr Brown's procedure notes for specific details I was present throughout the case, assisted for wound closure and transferred the patient to PACU in stable condition I attest to the content of the Intraoperative Record and any orders documented therein. Any exceptions are noted below.
[2019-04-10] MEDS ORDERED: VANCOMYCIN HCL 1,750 MG in SODIUM CHLORIDE 0.9% 500 ML IV SCH (09:30)
--- NOTE | 2019-04-10 09:33 | XRay Report ---
XR knee RT 2V routine CLINICAL HISTORY: Surgical Post Op COMPARISON: Right knee radiographs July 31, 2017. FINDINGS: Alignment of the total right knee arthroplasty is anatomic. There is no fracture or unexpe cted radiopaque foreign body. There are skin bethany. IMPRESSION: Expected findings following total right knee arthroplasty. Electronically signed by: Dwight Myrick M.D. 04/10/2019 9:32 AM
--- NOTE | 2019-04-10 09:58 | Operative Report ---
DATE OF OPERATION: 04/10/2019 SURGEON: Singh Brown MD. POISON INFORMATION SPECIALIST: Dr. Garibay. SECOND HSE COORDINATOR: Adonay Peres PA-C. 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 OPERATION PERFORMED: 1. Removal of hardware patella. 2. Extensor mechanism tubularization. 3. Total knee replacement, cemented right total knee. PERIOPERATIVE SITUATION: Medically cleared male with intractable knee pain, has physical exam and x-ray consistent with medial compartment disease and patellofemoral disease. He has failed conservative management. He had his knee replacement done on the other side and wished to proceed. He was advised that this one is more complicated based on his extensor mechanism reconstruction and the need for hardware removal. DESCRIPTION OF PROCEDURE: The patient appropriately identified, site verified, consent verified. Antibiotics confirmed as being given. The right lower extremity was prepped and draped in usual routine fashion. Tourniquet inflated to 300 mmHg after exsanguination of limb with a rubber Esmarch bandage for a total of approximately 60 minutes. The old incision was utilized and extended slightly proximal and distal. Full thickness flaps raised. The extensor mechanism was intact, but there was definitely some redundancy to the extensor mechanism. Parapatellar arthrotomy performed. There was extensive scarring distally. This was all released. The patella was everted. There was no major avulsion, only some slight peel back of the insertion on the most medial aspect. There was grade IV disease of the weightbearing surfaces of the medial femoral condyle, grade IV disease of the patella and the trochlea. The lateral compartment was relatively healthy. Distal femur was then entered. Cruciates resected. Distal femur resected 12 mm, proximal tibia subluxated, menisci excised. Proximal tibia resected 4 mm, the extension gap was excellent. Femur was sized between a 5 and a 4, was measured 5 cut 4, no notching occurred. Flexion gap was then checked. It was excellent. Box cut was then made and a 4 narrow fit well. The tibia was then subluxated and broached and reamed to a size 4 with a 10 mm spacer placed. Excellent stability was obtained in extension and mid range flexion. The patella had some lateral tracking. A lateral release was performed and this improved things. Once this was all set up, the area was all injected with Orthomix both posteriorly and in around the joint. The patella was then resected. This identified the screws. They were then removed. There were 2 Acutrak standard size screws. The patella was then measured to a 41. The seating trial placed and the seating holes made and the trial fit well. The patella tracked better with the release. All implants were then removed, irrigated with Betadine and Pulsavac. The Orthomix all injected around the knee as stated and then the permanent cemented in position followed by tibia, followed by femur, followed by patella. After 12 minutes, the tourniquet deflated. Minor bleeding points controlled with electrocautery, bone wax placed around some of the bone resections that were exposed. The wound was irrigated with Betadine and Pulsavac. After 14 minutes, the knee was then subluxated, the trial spacer removed, the permanent spacer seated. The knee reduced. No cement removal was required. The knee was then closed using #2 Ethibond. Tubularization of the extensor mechanism was performed and this really reefed up some of the redundancy and then made the extensor mechanism look very competent. Distally everything was closed well. The lateral retinacular release was then closed in a lengthened fashion. The suture was a #2 Vicryl and 1-0 Vicryl for all stitches. The wound was then irrigated. The knee was placed through range of motion of 0-90 degrees with no issues. The patella tracked well. Wound was then closed with 2-0 Vicryl and stainless steel clips. Appropriate dressing and Bhaskar Cheema dressing applied. He will be full weightbearing with a knee immobilizer on. His range of motion will be 0-30. No major active quad. We will follow with Coumadin prophylaxis for DVT. Bone pathology pending. ESTIMATED BLOOD LOSS: 100 mL. ADDENDUM SUMMARY OF IMPLANTS: Size 4 narrow right femur, posterior cruciate substituting size 4 mobile bearing tray, tibia size 41 oval dome 3-peg patella, and size 4, 10 mm posterior cruciate substituting poly insert size 4 x 10. Two bags of Palacos G cement. I attest to the content of the Intraoperative Record and any orders documented therein. Any exceptions are noted below. [facility]
--- NOTE | 2019-04-10 10:35 | Anesthesiology Progress Note ---
Date of Service April 10, 2019 Anesthesia Post Procedure Vital Signs Vital Signs: Temp Pulse Pulse Resp BP Pulse Ox 04/10/19 10:20 62 13 123/70 97 04/10/19 10:10 56 L 12 126/73 100 04/10/19 10:00 56 L 12 123/66 99 04/10/19 09:50 57 L 14 123/66 98 04/10/19 09:40 62 14 115/69 98 04/10/19 09:30 63 16 115/70 100 04/10/19 09:20 56 L 12 113/66 98 04/10/19 09:10 61 18 113/64 98 04/10/19 09:04 36.2 C L 65 18 104/57 L 99 04/10/19 05:18 36.9 C 70 20 147/88 H 97 Pain Intensity Right Knee: Pain Intensity: 0 Transfer of Care Handoff Completed per policy Notes Mental Status: alert / awake / arousable and participated in evaluation Patient Amnestic to Procedure: Yes Nausea / Vomiting: adequately controlled Pain: adequately controlled Airway Patency, RR, SpO2: stable & adequate BP & HR: stable & adequate Hydration State: stable & adequate Neuraxial Anesthesia: was administered and sensory block is resolving Anesthetic Complications: no major complications apparent and Pt Satisfied with anesthetic care
[2019-04-10] MEDS ORDERED: SODIUM CHLORIDE 0.9% 1000ML 1,000 ML IV SCH (11:35)
[2019-04-10] MEDS ORDERED: TAMSULOSIN HCL 0.4 MG CAP PO PRN (11:35)
[2019-04-10] MEDS ORDERED: BISACODYL 10 MG SUPP PR PRN (11:35)
[2019-04-10] MEDS ORDERED: MAGNESIUM HYDROXIDE SUSP 30 ML UDC PO PRN (11:35)
[2019-04-10] MEDS ORDERED: HYDROmorphone INJ 0.5 MG/0.5 ML SYR IV PRN (11:35)
[2019-04-10] MEDS ORDERED: METOCLOPRAMIDE HCL INJ 5 MG/ML 2 ML VIAL IV PRN (11:35)
[2019-04-10] MEDS ORDERED: ALUMINUM/MAGNESIUM SUSP 30 ML UDC PO PRN (11:35)
[2019-04-10] MEDS ORDERED: OXYCODONE HCL IR 5 MG TAB (IMMEDIATE RELEASE) PO PRN (11:35)
[2019-04-10] MEDS ORDERED: NALOXONE HCL 0.4 MG/1 ML VIAL/CARP IV PRN (11:35)
[2019-04-10] MEDS ORDERED: DiphenhydrAMINE HCL 50 MG/ML VIAL IV PRN (11:35)
[2019-04-10] MEDS: KETOROLAC TROMETHAMINE 15 MG/ML VIAL IV SCH ×3 (12:06→23:17)
[2019-04-10] MEDS: ORTHO WARFARIN NOMOGRAM SCH (13:05)
--- NOTE | 2019-04-10 13:35 | Progress Note ---
DATE: 04/10/2019 SUBJECTIVE: Postop check, status post right total knee replacement, extensor mechanism reefing and removal of hardware. He is doing well. He denies any chest pain, shortness of breath, fever, chills, nausea, vomiting or headache. Vital signs are stable. He is afebrile. Neurovascular check femoral sciatic nerve is normal. Postop x-rays look excellent. ASSESSMENT: Doing well. Continue with care pathway. Discharge tomorrow.
--- NOTE | 2019-04-10 13:39 | Discharge Summary ---
CHIEF COMPLAINT: Right knee pain. HISTORY OF PRESENT ILLNESS: The patient underwent elective right total knee replacement with extensor mechanism imbrication, also removal of hardware. His postop course has been uneventful. At this point in time, he is doing well. ALLERGIES: LIPITOR. CURRENT MEDICATIONS: Include acetaminophen, baby aspirin, lisinopril, Restasis, rosuvastatin and VESIcare. He will be discharged on Coumadin. Keep INR 1.8-2.2. PAST MEDICAL HISTORY: Remarkable for bradycardia, palpitations, ADHD, GERD, prostate cancer, osteoarthritis. PAST SURGICAL HISTORY: Remarkable for carpal tunnel releases, ulnar nerve transpositions, rotator cuff repair, quadriceps tendon reconstruction, prostatectomy, cataract surgery, left total knee replacement. SOCIAL HISTORY: Reveals he is single. No tobacco or alcohol use. He still employed. ASSESSMENT: Status post right total knee replacement with imbrication of extensor mechanism and removal of hardware. Plan is to discharge to home. Discharge on Coumadin. INR 1.8-2.2.
[2019-04-10] MEDS: ACETAMINOPHEN 500 MG TAB PO SCH ×2 (13:49→21:46)
[2019-04-10] MEDS: CEFAZOLIN 2000MG 2,000 MG/15 ML SYR IV SCH ×2 (14:00→22:14)
[2019-04-10] MEDS ORDERED: TRANEXAMIC ACID 1,000 MG in 0.9 % SODIUM CHLORIDE 100 ML IV SCH (15:00)
[2019-04-10] MEDS ORDERED: WARFARIN SOD 5 MG TAB PO SCH (16:00)
[2019-04-10] MEDS: FERROUS GLUCONATE 324 MG TAB PO SCH (16:31)
[2019-04-10] MEDS: ASCORBIC ACID 500 MG TAB PO SCH (16:31)
[2019-04-10] MEDS: DOCUSATE SODIUM 100 MG CAP PO SCH (20:34)
[2019-04-10] MEDS ORDERED: SENNA 8.6 MG TAB PO SCH (21:00)
[2019-04-10] MEDS ORDERED: ROSUVASTATIN CALCIUM 5 MG TAB PO SCH (21:00)
[2019-04-10] MEDS ORDERED: ASPIRIN 81 MG ECTAB PO SCH (21:00)
[2019-04-11] MEDS: ACETAMINOPHEN 500 MG TAB PO SCH (05:31)
[2019-04-11] MEDS: KETOROLAC TROMETHAMINE 15 MG/ML VIAL IV SCH (05:31)
[2019-04-11 05:58] LABS: Hematocrit (blood only) 35.9 % (42-52); Hemoglobin 11.5 g/dL (14.0-18.0); Mean Corpuscular Hemoglobin 28.4 pg (25-34); Mean Corpuscular Volume 88.6 fL (80-100); Mean Platelet Volume 8.6 fL (7.4-10.4); Platelet Count 258 K/uL (130-400); RDW Coefficient of Variation 14.3 % (11.5-14.5); RDW Standard Deviation 46.6 fL (36.4-46.3); Red Blood Count 4.05 M/uL (4.7-6.1); White Blood Count 11.25 K/uL (4.8-10.8)
[2019-04-11 06:05] LABS: INR 1.1 (0.9-1.1); Prothrombin Time 11.2 Seconds (9.0-12.0)
[2019-04-11 06:26] LABS: BUN Creatinine Ratio 16.4 (10-20); Creatinine Clr Calc Pharmacy 121.4 ml/min; Est GFR (African American) 105.1; Est GFR (Non-African American) 90.7; Potassium 4.2 mmol/L (3.5-5.1)
[2019-04-11] MEDS ORDERED: WARFARIN SOD 5 MG TAB PO STA (07:13)
--- NOTE | 2019-04-11 07:19 | Progress Note ---
DATE: 04/11/2019 SUBJECTIVE: Doing well with his post knee replacement, extensor mechanism imbrication and removal of hardware. He has no pain. He is full weightbearing. He understands he is only supposed to bend his knee 0-30 degrees and walk around and sleep with a knee immobilizer on. OBJECTIVE: VITAL SIGNS: Stable. He is afebrile. EXTREMITIES: Neurovascular check femoral sciatic nerve is normal. LABORATORY WORK: Hematocrit stable at 36. INR is 1.1. ASSESSMENT: Overall, doing well. PLAN: To discharge to home today after PT, OT services arranged by case management.
[2019-04-11] MEDS ORDERED: dexAMETHasone 10 MG in SYRINGE 0 ML IV SCH (08:00)
--- NOTE | 2019-04-11 08:47 | Anesthesiology Progress Note ---
Date of Service April 11, 2019 Anesthesia Post Procedure Vital Signs Vital Signs: Temp Pulse Pulse Pulse Resp BP Pulse Ox 04/11/19 07:03 37 C 74 18 111/67 97 04/11/19 03:30 37.0 C 78 16 128/84 99 04/10/19 22:59 37.0 C 75 16 136/69 04/10/19 18:55 36.9 C 79 16 127/73 98 04/10/19 14:40 36.5 C 69 18 129/80 98 04/10/19 13:13 36.5 C 70 127/82 98 04/10/19 12:12 36.5 C 63 135/85 98 04/10/19 11:39 36.4 C L 14 133/82 98 04/10/19 11:10 36.5 C 67 18 122/77 97 04/10/19 11:00 64 13 120/68 97 04/10/19 10:45 56 L 14 107/72 97 04/10/19 10:30 36.4 C L 58 L 14 118/67 100 04/10/19 10:20 62 13 123/70 97 04/10/19 10:10 56 L 12 126/73 100 04/10/19 10:00 56 L 12 123/66 99 04/10/19 09:50 57 L 14 123/66 98 04/10/19 09:40 62 14 115/69 98 04/10/19 09:30 63 16 115/70 100 04/10/19 09:20 56 L 12 113/66 98 04/10/19 09:10 61 18 113/64 98 04/10/19 09:04 36.2 C L 65 18 104/57 L 99 Pain Intensity Right Knee: Pain Intensity: 3 Notes Mental Status: alert / awake / arousable and participated in evaluation Patient Amnestic to Procedure: Yes Nausea / Vomiting: adequately controlled Pain: adequately controlled Airway Patency, RR, SpO2: stable & adequate BP & HR: stable & adequate Hydration State: stable & adequate Neuraxial Anesthesia: was administered and sensory block resolved Anesthetic Complications: no major complications apparent and Pt Satisfied with anesthetic care
[2019-04-11] MEDS ORDERED: MULTIVITAMIN TAB PO SCH (09:00)
[2019-04-11] MEDS ORDERED: LISINOPRIL 40 MG TAB PO SCH (09:00)
[2019-04-11] MEDS: DOCUSATE SODIUM 100 MG CAP PO SCH (09:07)
[2019-04-11] MEDS: ASCORBIC ACID 500 MG TAB PO SCH (09:07)
[2019-04-11] MEDS: FERROUS GLUCONATE 324 MG TAB PO SCH (09:07)
[2019-04-11] MEDS: ORTHO WARFARIN NOMOGRAM SCH (09:12)
--- NOTE | 2019-04-11 09:35 | Orthopedic Progress Note ---
Date of Service April 11, 2019 Assessment & Plan (1) Status post right knee replacement: Dressings were changed today by me. New pressure dressing was applied using webril and his compression stocking. Discharge later today after physical therapy. Home health has been established. Follow-up in the office in 2 weeks for staple removal Leave the knee immobilizer on at all times other than doing range of motion from 0-30 degrees Weight-bear as tolerated on the right leg with his walker Provide Coumadin dose today prior to discharge. Continue Coumadin 4 mg daily Monday, Monday, and Monday, and have his blood rechecked on Monday. Subjective Patient is seen in his room this morning. He states he is ready for discharge. He feels well. He has no complaints. Denies any chest pain, shortness of breath, nausea, or vomiting. Minimal knee pain. He is very happy with his recovery so far. Review of Systems Review of Systems: Unchanged from preop Physical Exam Physical Exam: General: Well-developed, well-nourished, elderly white male, alert and smiling. Conversive. No acute distress. Musculoskeletal: Right knee has a large Cheema dressing in place. Upon removal, there is some dried blood on his dressings. No active bleeding at this time. Minimal postop edema. No ecchymosis. Margarita are intact. Wound edges are well approximated. Patient has intact motor function to his quad, ankle, and toes. No flexion was attempted. Neurologic: Gross sensation is intact across the right leg by soft touch. Peripheral pulses are 2+. Results & Data Vital Signs (Past 12 Hours) Vital Signs Temp Pulse Resp BP Pulse Ox 04/11/19 07:03 37 C 74 18 111/67 97 04/11/19 03:30 37.0 C 78 16 128/84 99 04/10/19 22:59 37.0 C 75 16 136/69 Laboratory Results H&H this morning is 11.5 and 35.9. INR is 1.1.
== END 2019-04-11 12:10 | disposition home health service (06) | DRG 470 ==
LOC: ASU 04:49 → 3E 09:05

== ENCOUNTER 2020-10-21 05:04 | Observation (INO) ==
--- NOTE | 2020-09-23 14:17 | PAT Medication Instructions ---
Medication Instructions Date of Service September 23, 2020 Home Medications Men 50 Plus Multivitamin 1 tab PO QAM acetaminophen [Tylenol Extra Strength] 500 - 1,000 mg PO TID PRN aspirin [Aspirin Low Dose] 81 mg PO HS solifenacin [Vesicare] 10 mg PO QAM diclofenac sodium [Voltaren] 4 g TOPICAL TID PRN losartan 100 mg PO QAM omeprazole magnesium [Prilosec OTC] 20 mg PO QAM zolpidem 10 mg PO HS PRN STOP taking 24 hours before surgery diclofenac sodium [Voltaren] 4 g TOPICAL TID PRN DO NOT take the morning of surgery Men 50 Plus Multivitamin 1 tab PO QAM solifenacin [Vesicare] 10 mg PO QAM losartan 100 mg PO QAM Take morning of surgery With a small sip of water, OTHERWISE NOTHING TO EAT OR DRINK AFTER MIDNIGHT: acetaminophen [Tylenol Extra Strength] 500 - 1,000 mg PO TID PRN (if needed, may be taken up to four hours before surgery) omeprazole magnesium [Prilosec OTC] 20 mg PO QAM Take evening before surgery acetaminophen [Tylenol Extra Strength] 500 - 1,000 mg PO TID PRN (if needed) aspirin [Aspirin Low Dose] 81 mg PO HS zolpidem 10 mg PO HS PRN (if needed) Other Notes If you have any questions please call us at [phone] or [phone] or [phone] or [phone]
--- NOTE | 2020-09-28 12:08 | Anesthesiology Consultation ---
Date of Service September 28, 2020 Assessment & Plan (1) Encounter for pre-operative examination: - Cardiology office visit: 09/25/20: "This patient does not carry diagnosis of coronary artery disease. I believe he will do quite well with upcoming knee surgery. I have no reservations." - Hx CIPD (chronic inflammatory demyelinating polyneuropathy): Follows closely with neurology (Dr. Browne; last visit 09/15/20)- recommended IVIC therapy once a month. Patient scheduled to get IVIG infusions 10/05-10/09 (every day x 4 days)- surgeon's office made aware. Patient had spinal anesthesia 01/2019 and 03/2019 at [facility] without issue. Case reviewed with Dr. Wen- studies found indicating increased risk of prolonged effect of muscle relaxants appears to be associated with CIPD. He would consider block + LMA for upcoming procedure from his perspective but ultimately at anesthesiologist discretion AM DOS regarding type of anesthesia. He does not feel that further neurology perioperative recommendations needed prior to upcoming procedure from his perspective. - COVID screening: Per assessment on 09/28: Travel screen- Lives in [facility]. No known COVID-19 positive contacts or current COVID-19 related symptoms. Surgeon arranging preop COVID testing. Awaiting results. - S/P Right TKA (04/10/19): SAB (2 attempts) at L3-L4 + PNB at [facility] Chart Review Chart Review: Acceptable Risk for Surgery (pending surgeon-ordered PCP clearance) and Patient seen in Pre Admission Testing Teaching & Discussion Pre-Anesthesia Teaching/Discussion Notes: Instructed NPO after midnight before surgery,except medications with 15 cc of water. Medication instructions provided according to the PAT guidelines. History Surgery Operation Date: 10/21/20 07:15 Proposed Procedures p Right Knee Reconstruction Medial Patellofemoral Ligament Medical Retinaculam or Quad Tendon - Singh Brown MD Height/Weight Height: 6 ft 5 in Weight: 124.8 kg Allergies Allergy/AdvReac Type Severity Reaction Status Date / Time atorvastatin [From Lipitor] AdvReac Intermediate Muscle Pain Verified 06/16/20 11:13 Medications Home Medications Medication Instructions Recorded Confirmed Last Taken Men 50 Plus Multivitamin 1 tab PO QAM 01/08/19 09/25/20 04/06/19 acetaminophen [Tylenol Extra 500 - 1,000 mg PO TID PRN 01/08/19 09/25/20 04/09/19 14:00 Strength] aspirin [Aspirin Low Dose] 81 mg PO HS 01/08/19 09/25/20 04/05/19 solifenacin [Vesicare] 10 mg PO QAM 01/08/19 09/25/20 04/09/19 05:15 diclofenac sodium [Voltaren] 4 g TOPICAL TID PRN 06/16/20 09/25/20 Unknown losartan 100 mg PO QAM 06/16/20 09/25/20 Unknown omeprazole magnesium [Prilosec OTC] 20 mg PO QAM 06/16/20 09/25/20 Unknown zolpidem 10 mg PO HS PRN 06/16/20 09/25/20 Unknown Past Medical History Medical History (Updated 09/30/20 @ 15:11 by Elvie Christianson) Attention deficit disorder (ADD) no current meds Chronic inflammatory demyelinating neuropathy Getting IVIG infusions 10/05-10/09 (every day x 4 days)- surgeon's office made aware, follows with neurology (Dr. Browne) H/O prostate cancer s/p prostatectomy Hyperlipidemia Hypertension Osteoarthritis Pacemaker Implanted 2018 ([facility]), last check 08/26/20, follows with [facility] (Dr. Paramjit Currie/[place]) Exercise / Class Metabolic Activity III < 4 Walking/Shop/Light housework (very active but limitations since increased knee pain > no chest pain, no sob) Past Surgical History Surgical History H/O cataract extraction H/O elbow surgery R/L H/O hand surgery R/L History of adenoidectomy History of cardiac cath 08/2018 > no stents ([facility]) History of carpal tunnel release R/L History of colonoscopy Right x2 History of esophagogastroduodenoscopy (EGD) History of knee surgery History of permanent cardiac pacemaker placement 08/2018 History of prostatectomy History of radial keratotomy History of repair of rotator cuff Right x2 History of tonsillectomy History of total knee replacement Left TKA (01/30/2019): SAB with PNB History of total knee replacement Right TKA (04/10/19): SAB (2 attempts) at L3-L4 + PNB at [facility] Past Anesthesia History No Hx of Anesthesia Complications (except post-op "cold feeling") and No Family Hx of Anesthesia Complications History of PONV No Hx of PONV and No Hx of Motion Sickness Social History Smoking Status: Never smoker Do You Dip or Chew Tobacco: No Hx Alcohol Use: Yes Alcohol type: beer alcohol intake frequency: holidays/special occasions only Hx Substance Use: No substance use type: does not use Review of Systems Patient denies chest pain, shortness of breath, dyspnea on exertion, joint pain, reflux, cough, wheezing, palpitations. Physical Exam Vital Signs VITALS BP 164/96 P 95 TEMP 98.2 SP02 94%RA RESP 16 PHYSICAL Full neck and c-spine range of motion. Full TMJ range of motion. TMD 1 finger breaths Mallampati Score 4 Dentition: intact, + crowns (several) Lungs: clear throughout to auscultation Cardiac: regular rate and rhythm, no murmurs noted Spine: normal Carotid arteries: negative bruit Extremities: no edema Trimmed irizarry Testing Laboratory Results 09/28/20 12:49 09/28/20 12:49 PT 10.3 Seconds (9.0-12.0) 09/28/20 12:49 INR 1.0 (0.9-1.1) 09/28/20 12:49 APTT 25.9 Seconds (21.0-31.0) 09/28/20 12:49 Blood Type O Positive 09/28/20 12:49 Antibody Screen NEGATIVE 09/28/20 12:49 Electrocardiogram Date: 09/28/20 Atrial-sensed ventricular-paced rhythm at 82bpm. Chest X-Ray Date: 09/28/20 FINDINGS: The cardiac and mediastinal contours are normal. There is no evidence of focal pulmonary consolidation. There is no evidence of failure. No pleural effusions are visualized.[There is a left subclavian dual-chamber central venous pacemaker present. IMPRESSION: No active disease in the chest. Echocardiogram Date: 08/17/18 EF: 60% This is a limited echocardiogram for left ventricular function. All long of the left ventricle appear to contract. The EF appears normal at 60%. Cardiac Catheterization Date: 08/19/18 Intervention: + none The patient has minimal atherosclerotic disease. Preserved LV function. No mitral regurgitation, Normal LV diastolic parameters. The patient will continue with primary prevention for atherosclerotic disease. EF 65% with no RWMA. Findings: 1. The left main gives rise to the LAD, circumflex coronary artery, and a small ramus intermedius vessel. No plaque is present within the left main, w hich is about a 4.0 caliber vessel. The LAD is a large and tortous vessel without plaquing present. 2. The circumflex coronary artery is angiographically nondominant, although has a rich supply of obtuse marginalis. Minimal atheromata is seen in the circ, and in its branch vessels. There is a very large atrial recurrent branch coming off of the circumflex coronary artery. 3. The right coronary artery is as angiographically dominant large vessel with lumial irregularities. No significant plaque present. Other Testing Pacer check (remote): 08/26/20: Mode DDD. Battery longevity 10.3 years. AP1.4%. VP99.4%.
--- NOTE | 2020-09-28 13:12 | XRay Report ---
XR chest Pre-admission PA/Lat CLINICAL HISTORY: Preoperative chest COMPARISON STUDY: 01/14/2019 FINDINGS: The cardiac and mediastinal contours are normal. There is no evidence of focal pulmonary co nsolidation. There is no evidence of failure. No pleural effusions are visualized.[There is a left larson bclavian dual-chamber central venous pacemaker present. IMPRESSION: No active disease in the chest. ACT 112: Negative or not required by law. Electronically signed by: Mika Victoria M.D. 09/28/2020 1:11 PM
[2020-09-28 13:33] LABS: Basophils # (auto) 0.03 K/uL (0-0.2); Basophils % (auto) 0.5 %; Eosinophils # (auto) 0.09 K/uL (0-0.5); Eosinophils % (auto) 1.4 %; Hematocrit (blood only) 46.5 % (42-52); Immature Granulocytes # (auto) 0.03 K/uL (0.00-0.02); Immature Granulocytes % (auto) 0.5 %; Lymphocytes # (auto) 1.13 K/uL (1.2-3.4); Lymphocytes % (auto) 17.1 %; Mean Corpuscular Hemoglobin 29.9 pg (25-34); Mean Corpuscular Hgb Conc 34.4 g/dL (32-36); Mean Corpuscular Volume 86.9 fL (80-100); Mean Platelet Volume 9.5 fL (7.4-10.4); Monocytes # (auto) 0.43 K/uL (0.11-0.59); Monocytes % (auto) 6.5 %; Neutrophils # (auto) 4.89 K/uL (1.4-6.5); Platelet Count 328 K/uL (130-400); RDW Coefficient of Variation 13.4 % (11.5-14.5); RDW Standard Deviation 42.6 fL (36.4-46.3); Red Blood Count 5.35 M/uL (4.7-6.1)
[2020-09-28 13:46] LABS: Partial Thromboplastin Time 25.9 Seconds (21.0-31.0); Prothrombin Time 10.3 Seconds (9.0-12.0)
[2020-09-28 15:45] LABS: BUN Creatinine Ratio 15.2 (10-20); Calcium 9.9 mg/dl (8.5-10.1); Creatinine Clr Calc Pharmacy 103.4 ml/min; Est GFR (African American) 94.1; Est GFR (Non-African American) 81.2; Potassium 4.1 mmol/L (3.5-5.1)
--- NOTE | 2020-09-29 06:36 | Electrocardiogram Report ---
Test Reason : Blood Pressure : / mmHG Vent. Rate : 082 BPM Atrial Rate : 082 BPM P-R Int : 188 ms QRS Dur : 158 ms QT Int : 422 ms P-R-T Axes : 054 -80 079 degrees QTc Int : 493 ms Atrial-sensed ventricular-paced rhythm Abnormal ECG When compared with ECG of 14-JAN-2019 12:50, Vent. rate has increased BY 15 BPM Confirmed by Ramez Mckeon ([id number]) on 09/29/2020 6:36:35 AM Referred By: Singh Brown Confirmed By:Ramez Mckeon
--- NOTE | 2020-10-05 15:46 | History & Physical Report ---
Date of Service October 05, 2020 Assessment & Plan (1) Injury of quadriceps tendon: Approximately 20 minutes were spent reviewing operative procedure, postoperative recovery, physical therapy requirements and medication use. Postoperative prescriptions for Coumadin 2 mg and Percocet 5/325 mg were provided. This will be done in the hospital as 23-hour observation. The patient will attend PT closer to home. Postoperative followup appointment with Dr. Brown has been made for 11/02/2020. The patient is aware of the COVID-19 risks associated with surgery. He is currently asymptomatic of any COVID-19 symptoms. He has not been able to start a vaccination series yet. He will obtain nasal swab testing 1 week prior to surgery. He states he has already been cleared by his fan installer. He is awaiting clearance from his PCP, Dr. Lozano. The patient will be sent to PAT today for preoperative lab work. EKG has already been completed. He does have access to a walker and cane. Call with any other concerns. History of Present Illness Chief Complaint: Right knee instability Primary Care Provider: NO PCP This 75-year-old male presents today for his preoperative history and physical. He is scheduled to undergo a right knee reconstruction of the medial patellofemoral ligament, medial retinaculum, and quadriceps tendon on 10/21/2020. This will be done with Achilles tendon allograft. The patient has had right knee instability and some discomfort since summer. He presented in January complaining of buckling of the knee over the last 3-4 months. It was gradual. He previously underwent right total knee arthroplasty 04/10/2019. There was no specific injury for the new sensation of instability. The patient was given physical therapy as well as a brace, which improved his symptoms. He has always had a slight extension lag due to his previous chronic quadriceps injury. He now elects to proceed with surgical intervention in hopes of improving his function. Preoperative imaging has been obtained. Allergies Allergy/AdvReac Type Severity Reaction Status Date / Time atorvastatin [From Lipitor] AdvReac Intermediate Muscle Pain Verified 06/16/20 11:13 Home Medications Medication Instructions Recorded Confirmed Type Men 50 Plus Multivitamin 1 tab PO QAM 01/08/19 09/25/20 History acetaminophen [Tylenol Extra 500 - 1,000 mg PO TID PRN 01/08/19 09/25/20 History Strength] aspirin [Aspirin Low Dose] 81 mg PO HS 01/08/19 09/25/20 History solifenacin [Vesicare] 10 mg PO QAM 01/08/19 09/25/20 History diclofenac sodium [Voltaren] 4 g TOPICAL TID PRN 06/16/20 09/25/20 History losartan 100 mg PO QAM 06/16/20 09/25/20 History omeprazole magnesium [Prilosec OTC] 20 mg PO QAM 06/16/20 09/25/20 History zolpidem 10 mg PO HS PRN 06/16/20 09/25/20 History Past Med/Surg History Medical History Attention deficit disorder (ADD) no current meds Chronic inflammatory demyelinating neuropathy Getting IVIG infusions 10/05-10/09 (every day x 4 days)- surgeon's office made aware, follows with neurology (Dr. Browne) H/O prostate cancer s/p prostatectomy Hyperlipidemia Hypertension Osteoarthritis Pacemaker Implanted 2018 ([facility]), last check 08/26/20, follows with [facility] (Dr. Paramjit Currie/[place]) Surgical History H/O cataract extraction H/O elbow surgery R/L H/O hand surgery R/L History of adenoidectomy History of cardiac cath 08/2018 > no stents ([facility]/[place]) History of carpal tunnel release R/L History of colonoscopy Right x2 History of esophagogastroduodenoscopy (EGD) History of knee surgery History of permanent cardiac pacemaker placement 08/2018 History of prostatectomy History of radial keratotomy History of repair of rotator cuff Right x2 History of tonsillectomy History of total knee replacement Left TKA (01/30/2019): SAB with PNB History of total knee replacement Right TKA (04/10/19): SAB (2 attempts) at L3-L4 + PNB at [facility] Family History (Updated 10/05/20 @ 15:41 by Adonay Peres PA-C) Other Cancer Stroke Social History (Updated 10/05/20 @ 15:41 by Adonay Peres PA-C) Smoking Status: Never smoker Second Hand Exposure: Yes (PARENTS SMOKED); Do You Dip or Chew Tobacco: No; Hx Alcohol Use: Yes Alcohol type: beer Hx Substance Use: No Preferred Language: Grenadian Communication Ability: Effective Harness Cleaner Required: No Beliefs That Will Affect Care: None marital status: Current Living Situation: Alone current occupational status: employed 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 Physical Exam Physical Exam: Vitals: Height 195 cm, weight 125 kilograms, BMI 32.9, temperature 36.4, BP 180/74, pulse 80, O2 sat 98% on room air. General: Well- developed, well-nourished, elderly white male in no acute distress. Sitting in a chair. Alert and oriented. Skin: Warm and dry with good turgor. No rashes or lesions. No current intraarticular effusion. HEENT: Normocephalic, atraumatic. Eyes: PERRLA, EOMI. Nares and oropharynx exams deferred due to COVID precautions. He has known dental caps. Heart: RRR, no MGR. Lungs: Clear to auscultation bilaterally, no crackles, rhonchi or wheezing, good air movement. Abdomen: Bowel sounds present x4, soft, nontender. No organomegaly. No masses. Musculoskeletal: Right knee evaluation reveals review of systems to full extension. Flexion to greater than 100 degrees. Strength is 5/5 with fairly good quad tone. Old surgical scar is present. He has no significant discomfort with palpation about the knee. Stable collateral ligaments. No palpable defect in the patellar tendon or quadriceps tendon. Patella does ride laterally. Ambulates with a normal gait. Neurologic: Gross sensation is intact across the right lower extremity by soft touch. Peripheral pulses are 2+. Results & Data Results & Data ([facility]) Diagnostic Findings Radiographic imaging previously obtained shows no evidence of loosening of the hardware. No asymmetric wear. He does have a lateral tilt to the patella.
[2020-10-21] MEDS ORDERED: LR 15ML/HR IV SCH (06:00)
[2020-10-21] MEDS ORDERED: LACTATED RINGER'S 1,000 ML IV SCH (06:00)
[2020-10-21] MEDS ORDERED: TRANEXAMIC ACID / 0.7% NACL 1,000 MG/100 ML BAG IV ONE (06:00)
[2020-10-21] MEDS ORDERED: ROPIVACAINE 0.5% HCL/PF 150 MG, BUPIVACAINE 0.75% MPF 20 ML, EPINEPHrine 0.15 MG, Ketor... INFIL SCH (06:00)
[2020-10-21] MEDS ORDERED: BUPIVACAINE 0.25% 30 ML VIAL ONE (06:21)
[2020-10-21] MEDS ORDERED: BUPIVACAINE 0.5 % 5 MG/1 ML PF 10ML VIAL ONE (06:21)
[2020-10-21] MEDS ORDERED: EPINEPHrine INJ 1 MG/ML AMP ONE (06:21)
--- NOTE | 2020-10-21 06:24 | History & Physical Bridge Note ---
Date of Service October 21, 2020 History & Physical Bridge Note I have examined the patient, reviewed the History & Physical and in the interval since the performance of the History & Physical I have noted the following changes of clinical significance: consent obtained/site verified/covid screen negative.no changes noted
[2020-10-21] MEDS ORDERED: fentaNYL citrate 100 MCG/2 ML VIAL ONE ×2 (06:30→07:12)
[2020-10-21] MEDS ORDERED: MIDAZOLAM HCL 1 MG/ML 2ML VIAL ONE (06:30)
[2020-10-21] MEDS ORDERED: ORTHO JOINT ANESTHETIC ONE (06:45)
[2020-10-21] MEDS ORDERED: ONDANSETRON INJ 2 MG/ML 2 ML VIAL IV PRN ×2 (07:10→09:57)
[2020-10-21] MEDS ORDERED: ATROPINE SULFATE 0.1 MG/ML 10ML SYR IV PRN (07:10)
[2020-10-21] MEDS ORDERED: ePHEDrine sulfate 50 MG/ML AMP IV PRN (07:10)
[2020-10-21] MEDS ORDERED: HYDROmorphone INJ 2 MG/ML SYR/VIAL IV PRN (07:10)
[2020-10-21] MEDS ORDERED: fentaNYL citrate 100 MCG/2 ML VIAL IV PRN (07:10)
[2020-10-21] MEDS ORDERED: ONDANSETRON INJ 2 MG/ML 2 ML VIAL ONE (07:28)
[2020-10-21] MEDS ORDERED: PROPOFOL IV EMULSION 10 MG/ML 20 ML VIAL IV ONE (07:28)
[2020-10-21] MEDS ORDERED: LIDOCAINE HCL 2% 2 ML VIAL/AMP(20MG/ML) INFIL ONE (07:28)
[2020-10-21] MEDS ORDERED: DEXAMETHASONE SOD INJ 4 MG/ML VIAL ONE (07:28)
--- NOTE | 2020-10-21 08:15 | Post Operative Brief Note ---
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
--- NOTE | 2020-10-21 08:29 | Operative Report ---
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 I identified the patient and participated in the time-out.: Yes Procedure Operation Date: 10/21/20 07:00 Actual Procedures p Right Knee Reconstruction Medial Patellofemoral Ligament, Medial Retinaculum, and Quad Tendon with Achilles Tendon Allograft(Right) - Singh Brown MD Surgeon TL Brown MD Aircraft Accessories Mechanic Daja/Larisa GARCES Estimated Blood Loss 20 Findings Consistent with Post-Op Diagnosis Specimens none Drains none Anesthesia Type General Complications none Disposition Accompanied Patient To Recovery: Yes Disposition: Recovery Room Indications This 75-year-old male presented to the office with complaints of instability of his right knee. Patient previously had a quadriceps tendon repair and right total knee arthroplasty. Symptoms developed gradually after his total knee arthroplasty. He had tried conservative care measures including bracing and physical therapy, without improvement. He elected to proceed with surgical intervention after being educated about potential risks and outcomes. Preoperative imaging was obtained. Description of Procedure Patient was taken to the operating room where he was given general anesthesia. He was prepped and draped in the usual sterile fashion. Please see Dr. Se cleary's operative report for specifics of the procedure. I was present for the entire case from initial patient positioning through final wound closure. Assistance was provided in tissue retraction, hemostasis, graft placement, and final wound closure. Patient was taken to the recovery room in satisfactory condition. I attest to the content of the Intraoperative Record and any orders documented therein. Any exceptions are noted below.
--- NOTE | 2020-10-21 08:55 | XRay Report ---
XR chest 1V portable CLINICAL HISTORY: decreased o2 saturation COMPARISON STUDY: 09/28/2020 FINDINGS: The cardiac and mediastinal contours remain stable. There is a left subclavian dual-chamber central venous pacemaker. There is no failure. There is no focal pulmonary consolidation. There are no pleural effusions.[ IMPRESSION: No active disease in the chest. ACT 112: Negative or not required by law. Electronically signed by: Mika Victoria M.D. 10/21/2020 8:53 AM
--- NOTE | 2020-10-21 08:57 | Operative Report (OR) ---
DATE OF OPERATION: 10/21/2020 SURGEON: Singh Brown MD. EXPANSION JOINT BUILDER: Dr. Farnsworth. SECOND EXPANSION JOINT BUILDER: Adonay Peres PA-C. 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 OPERATION PERFORMED: Reconstruction MPFL with Achilles allograft and reconstruction of the medial retinaculum and medial quad with Achilles allograft.Right Knee. PERIOPERATIVE SITUATION: Medically cleared male who was doing well and had a minor midshaft and felt something pull on the medial side of his knee. Since that time, noted a little bit of lack of weakness and a palpable defect in the medial side of his knee. He has a very complex history dating back to having quad tendon rupture repair that has failed and then referred to me for reconstruction, which was done. Ultimately, he did well for years with that until his knee replaced. DESCRIPTION OF PROCEDURE: The patient was appropriately identified, site verified, consent verified. Antibiotics confirmed as being given. The right lower extremity was prepped and draped in usual routine fashion. Tourniquet inflated to 300 mmHg after exsanguination of limb with a rubber Esmarch bandage for a total of 47 minutes. The old incision was utilized. Full thickness flaps raised. The defect of the medial retinaculum, medial quad and the MPFL was then palpated. This was then all opened. The knee was then flexed and measuring roughly 15 mm anterior to the posterior edge of the implant, a socket was made 20 mm in length and 9 mm bone plug with the Achilles allograft fashion placed and then secured with a 7 x 20 mm round head screw with excellent purchase. The retinaculum and tissue was then advanced over itself in a Pulvertaft weave with the MPFL allograft was then made and anchored medially with #2 Vicryl, there was an Arthrex all-suture anchor placed on the medial superior aspect of the patella. This was then used to imbricate the medial retinaculum, medial patellar tendon tissue along the patella as well as the allograft. This was then all bolstered with #2 Vicryl. Once this was secured on the patella, the knee was checked. There was good tracking and no medial or lateral instability to the patella. The remaining graft was then Pulvertaft weaved proximally and then secured and imbricated into all of the tissue that was negative. #2 Vicryl was used for this and an excellent repair was obtained. The knee could easily be flexed to 60 degrees before tension was placed on the repair, so we will rehab him from 0-60 for the first month. He will be full weightbearing with a knee immobilizer/straight leg immobilizer on. The wound was then irrigated and then closed using a #2 Vicryl and stainless steel clips. Appropriate dressing applied. The patient transferred to the recovery room in satisfactory condition having tolerated the procedure well. No pathology pending. ESTIMATED BLOOD LOSS: Roughly 20 mL. Crystalloid per anesthesia. DVT prophylaxis with Coumadin. I attest to the content of the Intraoperative Record and any orders documented therein. Any exceptions are noted below. AUDREYD
--- NOTE | 2020-10-21 09:37 | Anesthesiology Progress Note ---
Date of Service October 21, 2020 Anesthesia Post Procedure Vital Signs Vital Signs: Temp Pulse Pulse Resp BP BP Pulse Ox 10/21/20 09:25 74 16 136/83 97 10/21/20 09:10 71 16 141/85 H 96 10/21/20 09:00 36.6 C 80 18 138/84 98 10/21/20 08:50 80 18 141/87 H 97 10/21/20 08:40 80 17 140/75 99 10/21/20 08:31 36.5 C 82 14 151/75 H 96 10/21/20 05:25 37.1 C 77 18 153/96 H 97 Pain Intensity Right Knee: Pain Intensity: 4 Transfer of Care Handoff Completed per policy Notes Mental Status: alert / awake / arousable and participated in evaluation Patient Amnestic to Procedure: Yes Nausea / Vomiting: adequately controlled Pain: adequately controlled Airway Patency, RR, SpO2: stable & adequate BP & HR: stable & adequate Hydration State: stable & adequate Anesthetic Complications: no major complications apparent and Pt Satisfied with anesthetic care
[2020-10-21] MEDS ORDERED: HYDROmorphone INJ 0.5 MG/0.5 ML SYR IV PRN (09:57)
[2020-10-21] MEDS ORDERED: diphenhydrAMINE 50 MG/ML VIAL IV PRN (09:57)
[2020-10-21] MEDS ORDERED: METOCLOPRAMIDE HCL INJ 5 MG/ML 2 ML VIAL IV PRN (09:57)
[2020-10-21] MEDS ORDERED: oxyCODONE HCL IR 5 MG TAB (IMMEDIATE RELEASE) PO PRN (09:57)
[2020-10-21] MEDS ORDERED: TAMSULOSIN HCL 0.4 MG CAP PO PRN (09:57)
[2020-10-21] MEDS ORDERED: ALUMINUM/MAGNESIUM SUSP 30 ML UDC PO PRN (09:57)
[2020-10-21] MEDS ORDERED: MAGNESIUM HYDROXIDE SUSP 30 ML UDC PO PRN (09:57)
[2020-10-21] MEDS ORDERED: bisacodyL 10 MG SUPP PR PRN (09:57)
[2020-10-21] MEDS ORDERED: NALOXONE HCL 0.4 MG/1 ML VIAL/CARP IV PRN (09:57)
[2020-10-21] MEDS ORDERED: VANCOMYCIN HCL 1,750 MG in SODIUM CHLORIDE 0.9% 500 ML IV ONE (10:00)
[2020-10-21] MEDS ORDERED: SODIUM CHLORIDE 0.9% 1000ML 1,000 ML IV SCH (10:15)
[2020-10-21] MEDS: LOSARTAN POTASSIUM 50 MG TAB PO SCH (10:58)
[2020-10-21] MEDS: MULTIVITAMIN TAB PO SCH (10:58)
[2020-10-21] MEDS: PANTOprazole 40 MG TAB PO SCH (10:59)
[2020-10-21] MEDS: DOCUSATE SODIUM 100 MG CAP PO SCH ×2 (11:01→21:08)
--- NOTE | 2020-10-21 11:49 | Discharge Summary (DS) ---
CHIEF COMPLAINT: Right knee pain. HISTORY OF PRESENT ILLNESS: He underwent an extensor mechanism reconstruction using allograft and soft tissue augmentation. Did well. PAST MEDICAL HISTORY: Remarkable for ADD, demyelinating neuropathy, history of prostate cancer, hyperlipidemia, hypertension, osteoarthritis, pacemaker. PAST SURGICAL HISTORY: Remarkable for eye surgery, hand surgery, elbow surgery, carpal tunnel release, EGDs, cardiac pacemaker, prostatectomy, radial tear arthrotomy, rotator cuff surgery, tonsillectomy, knee replacements. SOCIAL HISTORY: Reveals that he lives alone, lives at a one-level home, feels safe at home, does not smoke or drink. REVIEW OF SYSTEMS: Noncontributory. ASSESSMENT: Doing well. Discharge to home tomorrow after physical therapy/occupational therapy. Coumadin per nomogram for deep venous thrombosis/pulmonary embolism prophylaxis.
[2020-10-21] MEDS: KETOROLAC TROMETHAMINE 15 MG/ML VIAL IV SCH ×3 (12:09→23:19)
[2020-10-21] MEDS: ORTHO WARFARIN NOMOGRAM SCH (12:46)
[2020-10-21] MEDS: ACETAMINOPHEN 500 MG TAB PO SCH ×2 (13:50→21:07)
[2020-10-21] MEDS: ceFAZolin 2000MG 2,000 MG/15 ML SYR IV SCH ×2 (15:46→23:19)
--- NOTE | 2020-10-21 15:47 | Progress Notes ---
DATE: 10/21/2020 SUBJECTIVE: Postop check status post extensor mechanism MPFL reconstruction, right lower extremity. He is sitting up in bed, had his breakfast, doing well. No nausea or vomiting. Denies chest pain, shortness of breath, fever, chills, nausea, vomiting or headache. OBJECTIVE: Vital signs are stable. He is afebrile. The femoral sciatic nerve functioning. Can do a straight leg raise. He is not to move his knee immobilizer or walk around full weightbearing with that on using a walker for balance. Follow up with us in 2 weeks for staple removal. He will be discharged tomorrow. When he starts PT at roughly 7-14 days, he can do range of motion 0-60, but nothing further. No resisted quad extensions.
[2020-10-21] MEDS ORDERED: WARFARIN SOD 5 MG TAB PO ONE (16:00)
[2020-10-21] MEDS: FERROUS GLUCONATE 324 MG TAB PO SCH (17:51)
[2020-10-21] MEDS: ASCORBIC ACID 500 MG TAB PO SCH (17:52)
[2020-10-21] MEDS ORDERED: SENNA 8.6 MG TAB PO SCH (21:00)
[2020-10-21] MEDS ORDERED: ZOLPIDEM TARTRATE 10 MG TAB PO PRN (21:00)
[2020-10-21] MEDS ORDERED: ASPIRIN 81 MG ECTAB PO SCH (21:00)
[2020-10-22] MEDS: KETOROLAC TROMETHAMINE 15 MG/ML VIAL IV SCH (05:22)
[2020-10-22] MEDS: ACETAMINOPHEN 500 MG TAB PO SCH (05:22)
--- NOTE | 2020-10-22 07:46 | Progress Notes ---
DATE: 10/22/2020 SUBJECTIVE: Postop check status post extensor mechanism, MPFL reconstruction of his right lower extremity. At this point in time, he is doing well, has no issues. He is very happy. Denies chest pain, shortness of breath, fever or chills. Vital signs are stable. He is afebrile. Neurovascular check, femoral sciatic nerve is normal. Labs are pending. ASSESSMENT: Doing well. Discharge to home today. Follow up in 2 weeks. No motion for 2 weeks.
[2020-10-22 08:00] LABS: Hemoglobin 13.2 g/dL (14.0-18.0); Mean Corpuscular Hemoglobin 29.3 pg (25-34); Mean Corpuscular Volume 88.9 fL (80-100); Mean Platelet Volume 9.3 fL (7.4-10.4); Platelet Count 221 K/uL (130-400); RDW Coefficient of Variation 13.5 % (11.5-14.5); RDW Standard Deviation 44.3 fL (36.4-46.3); White Blood Count 7.66 K/uL (4.8-10.8)
[2020-10-22] MEDS ORDERED: dexAMETHasone 10 MG in SYRINGE 0 ML IV SCH (08:00)
[2020-10-22 08:12] LABS: Prothrombin Time 10.6 Seconds (9.0-12.0)
[2020-10-22 08:26] LABS: BUN Creatinine Ratio 20.1 (10-20); Calcium 9.1 mg/dl (8.5-10.1); Creatinine Clr Calc Pharmacy 124.5 ml/min; Est GFR (African American) 104.3
[2020-10-22] MEDS: LOSARTAN POTASSIUM 50 MG TAB PO SCH (09:03)
[2020-10-22] MEDS: FERROUS GLUCONATE 324 MG TAB PO SCH (09:03)
[2020-10-22] MEDS: ASCORBIC ACID 500 MG TAB PO SCH (09:04)
[2020-10-22] MEDS: DOCUSATE SODIUM 100 MG CAP PO SCH (09:04)
[2020-10-22] MEDS: PANTOprazole 40 MG TAB PO SCH (09:04)
[2020-10-22] MEDS: MULTIVITAMIN TAB PO SCH (09:05)
[2020-10-22] MEDS ORDERED: WARFARIN SOD 5 MG TAB PO ONE (09:30)
[2020-10-22] MEDS: ORTHO WARFARIN NOMOGRAM SCH (10:31)
--- NOTE | 2020-10-22 17:58 | Orthopedic Progress Note ---
Date of Service October 22, 2020 Assessment & Plan (1) S/P right knee surgery: Patient's dressings were changed today by me. He was placed back in his knee immobilizer. Patient has strict instructions to keep the knee immobilizer in place for the next 2 weeks. He must keep the knee straight. Weightbearing as tolerated in the knee brace. He may start physical therapy in 2 weeks, after his bethany have been removed. Follow-up in the office in 2 weeks as scheduled. Prescriptions for Percocet and Coumadin were sent to his pharmacy. Written discharge instructions were provided. He will have his INR rechecked on Monday. Admission and Anticipated Discharge Date Admission Date: October 21, 2020 Subjective Patient is seen in his room this morning. He states he is ready to go home. He denies any chest pain, shortness of breath, nausea, vomiting, or significant knee pain. He has been out of bed. Knee immobilizer has been in place. No other complaints at this point. He states he has very little pain. Review of Systems Review of Systems: Unchanged from yesterday. Physical Exam Physical Exam: General: Well-developed, well-nourished, elderly white male, in no acute distress. Laying in bed. Alert and oriented. Conversive. Skin: Warm and dry with good turgor. No rashes or lesions. Musculoskeletal: Right knee has the knee immobilizer and dressings in place. Upon removal of his knee immobilizer and dressings, there is scant dried blood on his inner dressings. He has no active bleeding from his surgical site. [place] are intact. Wound edges are well approximated. No erythema or warmth. Expected postoperative ecchymosis and edema. Intact motor function of the ankle. Patient is able to do a straight leg raise. Knee was kept straight and no range of motion activity was performed. Neurologic: Gross sensation is intact across the right leg by soft touch. Peripheral pulses are 2+. Results & Data ([facility]) Vital Signs (Past 12 Hours) Vital Signs Temp Pulse Resp BP Pulse Ox 10/22/20 07:52 36.8 C 69 16 141/85 H 97 Laboratory Results CBC obtained this morning shows WBCs of 7.66. Hemoglobin 13.2 hematocrit 40.0. Platelets 221,000. INR is 1.0. PRP is unremarkable.
--- NOTE | 2020-10-23 15:00 | Operative Report ---
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 Brown' s note, I assisted in prepping and draping, instruments handling, certain parts of the procedure and wound closure I attest to the content of the Intraoperative Record and any orders documented therein. Any exceptions are noted below.
== END 2020-10-22 11:26 | disposition home or self-care (01) ==
LOC: ASU 05:04 → 3N 05:04